=== PATIENT | female | born 1940 | race Caucasian/White ===

== ENCOUNTER 2016-07-04 10:10 | Day surgery (SDC) | payer BC, MEDICARE ==
[~2016-07-04 10:10] MED LIST: ACETAMINOPHEN 1000MG/100 ML PREMIX IV ONE
[2016-07-04] MEDS ORDERED: PROPOFOL 10 MG/ML VIAL IV ONE (14:00)
[2016-07-04] MEDS ORDERED: LIDOCAINE 2% MDV (20MG/ML) 20ML VIAL IV ONE (14:00)
[2016-07-04] MEDS ORDERED: SEVOFLURANE 250 ML INH ONE (14:00)
[2016-07-04] MEDS ORDERED: KETOROLAC 30 MG/ML VIAL IVP ONE (14:00)
[2016-07-04] MEDS ORDERED: ACETAMINOPHEN W/ CODEINE 300MG/60MG TABLET PO ONE (14:20)
--- NOTE | 2016-07-06 13:30 | Operative Note ---
DATE OF SURGERY: 07/04/2016. Surgeon: Pelon Harrison DO. REFERRING PHYSICIAN: Tyson Marshall DO. PREOPERATIVE DIAGNOSIS: Carpal tunnel syndrome of the right wrist. POSTOPERATIVE DIAGNOSIS: Carpal tunnel syndrome of the right wrist. OPERATION: Decompression, right median nerve, at the wrist using 3.5 loupe magnification. PROCEDURE: This 75-year-old female was taken to the operating room and placed in the supine position on the operating table. General anesthesia was induced. Right upper extremity was elevated. It was prepped with Hibiclens and draped in the usual sterile fashion. It was exsanguinated and the tourniquet inflated to 250 mmHg. A palmar incision was utilized following the hypothenar crease from the level of the base of the webspace of thumb to the flexor crease at the wrist. Dissection was carried down through the skin and subcutaneous tissue. Hemostasis obtained with electrocautery. Palmar fascia was divided in line with the skin incision to expose the flexor retinaculum, which was punctured, split to its proximal margin. Then with the contents of the carpal tunnel under direct vision, the transverse carpal ligament was transected along its ulnar border, and the radial flap was raised to expose the entire median nerve under the transverse carpal ligament. The recurrent motor branch of the median nerve was identified. The fascicles of the nerve are somewhat tortuous, but otherwise appeared to be normal. The nerve demonstrated mild atrophy. The wound was irrigated. Tourniquet was released. Hemostasis obtained with the electrocautery and the wound closed with interrupted 6-0 nylon sutures. Sterile dressings were applied with plaster splint immobilization with the wrist in slight dorsiflexion and the thumb in an adducted position. GROSS PATHOLOGY: This patient demonstrated mild tortuosity of the recurrent motor branch of the median nerve, but the nerve itself otherwise appeared normal. The main body of the median nerve under the transverse carpal ligament demonstrated mild atrophy. [facility]
== END 2016-07-04 13:58 | disposition home or self-care (01) ==
LOC: SUR 10:10
PROVIDERS: ATTEND Orthopaedic Surgery
DX: G56.01 Carpal tunnel syndrome, right upper limb (principal); E78.00 Pure hypercholesterolemia, unspecified; I10 Essential (primary) hypertension
CPT/HCPCS: 64721; 01810; J1885

== ENCOUNTER 2017-04-02 07:24 | Emergency (ER) | payer MEDICARE ==
[2017-04-02] MEDS ORDERED: MORPHINE SULFATE 5 MG/ML PFS IM ONE (07:53)
[2017-04-02] MEDS ORDERED: PROMETHAZINE HCL 25 MG/ML VIAL IM ONE (07:54)
--- NOTE | 2017-04-02 08:15 | Emergency Department Record ---
History of Present Illness - General Chief complaint: Pain Stated complaint: HIP PAIN Time Seen by Provider: 04/02/17 07:26 Source: Patient Mode of Arrival: Ambulatory Limitations: No limitations - History of Present Illness Initial comments: pt c/o l hip pain that radiates down l leg. no numbness. no problems w bowel or bladder. pt does not recall any injury. she has never had this before MD Complaint: Extremity pain, Other Onset/Timin -: Days(s) Location: Left, Thigh History of Same: No Severity scale (1-10): 8 Consistency: Constant Improves with: Movement Worsens with: Rest Associated Symptoms: Denies other symptoms - Related Data Home Medications Medication Instructions Recorded Confirmed Last Taken Ascorbic Acid [Vitamin C] 1,000 mg PO DAILY 04/02/17 04/02/17 04/01/17 Losartan/Hydrochlorothiazide 1 each PO DAILY 04/02/17 04/02/17 04/01/17 [Losartan-Hctz 50-12.5 mg Tab] Allergies Allergy/AdvReac Type Severity Reaction Status Date / Time Sulfa (Sulfonamide Allergy Intermediate HIVES Verified 04/02/17 07:41 Antibiotics) tramadol HCl [From Ultram] AdvReac Intermediate RAPID Verified 04/02/17 07:41 HEART RATE hydrocodone [From [place]] AdvReac NAUSEA AND Verified 04/02/17 07:41 VOMITING Travel Screening - Travel/Exposure Within Last 30 Days Have you traveled within the last 30 days?: No - Travel/Exposure Within Last Year Have you traveled outside the [place] in the last year?: No - Additonal Travel Details Have you been exposed to anyone with a communicable illness?: No - Travel Symptoms Symptom Screening: None Review of Systems Reviewed: No additional complaints except as noted below Constitutional: Reports: As per HPI. Denies: Chills, Fever, Malaise, Night sweats, Weakness, Weight change Eyes: Reports: As per HPI. Denies: Eye discharge, Eye pain, Photophobia, Vision change ENT: Reports: As per HPI. Denies: Congestion, Dental pain, Ear pain, Epistaxis , Hearing loss, Throat pain Respiratory: Reports: As per HPI. Denies: Cough, Dyspnea, Hemoptysis, Stridor, Wheezes Cardiovascular: Reports: As per HPI. Denies: Arrhythmia, Chest pain, Dyspnea on exertion, Edema, Murmurs, Orthopnea, Palpitations, Paroxysmal nocturnal dyspnea, Rheumatic Fever, Syncope Endocrine: Reports: As per HPI. Denies: Fatigue, Heat or cold intolerance, Polydipsia, Polyuria Gastrointestinal: Reports: As per HPI. Denies: Abdominal pain, Constipation, Diarrhea, Hematemesis, Hematochezia, Melena, Nausea, Vomiting Genitourinary: Reports: As per HPI. Denies: Abnormal menses, Discharge, Dyspareunia, Dysuria, Frequency, Hematuria, Incontinence, Retention, Urgency Musculoskeletal: Reports: As per HPI, Back pain. Denies: Arthralgia, Gout, Joint swelling, Myalgia, Neck pain Skin: Reports: As per HPI. Denies: Bruising, Change in color, Change in hair/ nails, Lesions, Pruritus, Rash Neurological: Reports: As per HPI. Denies: Abnormal gait, Confusion, Headache, Numbness, Paresthesias, Seizure, Tingling, Tremors, Vertigo, Weakness Psychiatric: Reports: As per HPI. Denies: Anxiety, Auditory hallucinations, Depression, Homicidal thoughts, Suicidal thoughts, Visual hallucinations Hematological/Lymphatic: Reports: As per HPI. Denies: Anemia, Blood Clots, Easy bleeding, Easy bruising, Swollen glands Past Medical History - SOCIAL HISTORY Smoking Status: Never smoker Alcohol Use: None Drug Use: None - RESPIRATORY Hx Respiratory Disorders: Yes Hx Sleep Apnea: Yes Hx of CPAP: Yes - CARDIOVASCULAR Hx Cardio Disorders: Yes Hx Edema: Yes (hands and left ankle) Hx Hypertension: Yes (good control with med) Hx Palpitations: No (denies) - NEURO Hx Neuro Disorders: Yes Hx Dizziness: Yes (vertigo) Hx Headaches: Yes ("most the time") Comment:: vertigo - GI Hx GI Disorders: No Hx Reflux: (denies) Hx Nausea/Vomiting: (denies) - Hx Genitourinary Disorders: Yes Hx Bladder Problem: Yes (frequency) Comment:: frequency - ENDOCRINE Hx Endocrine Disorders: Yes Comment:: Hx hypoglycemia - MUSCULOSKELETAL Hx Musculoskeletal Disorders: Yes Hx Arthritis: Yes (hands) Hx Back Injury: Yes (got dizzy & fell backwards-16 yrs ago) Hx Osteoporosis: Yes Comment:: right wrist carpal tunnel syndrome - PSYCH Hx Psych Problems: No - HEMATOLOGY/ONCOLOGY Hx Hematology/Oncology Disorders: Yes Hx Cancer: Yes (skin lesion from lt wrist) Family Medical History Any Significant Family History?: No Hx Anxiety: Brother/Sister *Anxiety Comment: brother bipolar Hx Cancer: Brother/Sister *Cancer Comment: sister Hx Dementia: Mother Hx Diabetes: Brother/Sister *Diabetes Comment: sister Hx Heart Disease: Father, Mother, Brother/Sister Hx HTN: Brother/Sister, Grandparents *HTN Comment: sister Hx Seizures: Brother/Sister *Seizure Comment: 1/2 sister Hx Stroke: Mother Physical Exam - General General Appearance: Alert, Oriented x3, Cooperative, Mild distress - Head Head exam: Normal inspection - Eye Eye exam: Normal appearance, PERRL, EOMI Pupils: Normal accommodation - ENT ENT exam: Normal exam, Mucous membranes moist, Normal external ear exam, Normal orophraynx, TM's normal bilaterally Ear exam: Normal external inspection. negative: External canal tenderness Nasal Exam: Normal inspection. negative: Discharge, Sinus tenderness Mouth exam: Normal external inspection, Tongue normal Teeth exam: Normal inspection. negative: Dental caries Throat exam: Normal inspection. negative: Tonsillar erythema, Tonsillar exudate - Neck Neck exam: Normal inspection, Full ROM. negative: Tenderness - Respiratory Respiratory exam: Normal lung sounds bilaterally. negative: Respiratory distress - Cardiovascular Cardiovascular Exam: Regular rate, Normal rhythm, Normal heart sounds - GI/Abdominal GI/Abdominal exam: Soft, Normal bowel sounds. negative: Tenderness - Rectal Rectal exam: Deferred - exam: Deferred - Extremities Extremities exam: Normal inspection, Full ROM, Normal capillary refill, Tenderness - Back Back exam: Reports: Normal inspection, Full ROM, Muscle spasm, Tenderness. Denies: Rash noted - Neurological Neurological exam: Alert, Normal gait, Oriented X3, Reflexes normal - Psychiatric Psychiatric exam: Normal affect, Normal mood - Skin Skin exam: Dry, Intact, Normal color, Warm Course Vital Signs 04/02/17 07:26 Temperature 97.4 F L Pulse Rate 67 Respiratory 16 Rate Blood Pressure 179/92 Pulse Ox 97 Disposition Disposition: Discharge Clinical Impression: Radiculopathy Qualifiers: Spinal region: lumbar Qualified Code(s): M54.16 - Radiculopathy, lumbar region Disposition: Home, Self-Care Condition: (1) Good Instructions: Lumbar Disc Herniation (ED) Additional Instructions: follow up with dr clay this week. return sooner if worse. no lifting more then 5 pounds Forms: Patient Portal Access Quality - Quality Measures Quality Measures: N/A - Blood Pressure Screening Does Patient Have Any of the Following: No Blood Pressure Classification: Hypertensive Reading Systolic Measurement: 179 Diastolic Measurement: 92 Screening for High Blood Pressure: < First Hypertensive BP, F/U Documented > [ G8950] First Hypertensive Follow-up Interventions: Follow-up with rescreen GT 1 day and LT 4 weeks.
--- NOTE | 2017-04-02 14:27 | RADIOLOGY REPORT ---
EXAM: LEFT HIP HISTORY: LOWER BACK AND LEFT POSTERIOR HIP PAIN BEGINNING SIX DAYS AGO. NO KNOWN INJURY. TECHNIQUE: An AP view of the pelvis was obtained as well as AP and frog leg lateral views of the left hip. Comparison: CT of the abdomen and pelvis with contrast dated 11/29/05. Encounter: Initial. FINDINGS: There is normal bone mineralization. No fracture, dislocation, or destructive bone lesion is seen. Total right hip arthroplasty changes are identified. The metallic prosthetic components appear well seated. There are mild to moderate degenerative changes of the left hip. Enthesopathic spurring is noted along the anterior margin of the greater trochanters of each femur. There are mild degenerative changes of the lower lumbar spine. The sacroiliac joints are unremarkable. Vascular calcifications are noted within the inferior pelvis. IMPRESSION: 1. NO ACUTE OSSEOUS ABNORMALITY. NO LYTIC OR BLASTIC BONE LESION. 2. STATUS POST TOTAL RIGHT HIP ARTHROPLASTY CHANGES. 3. MILD TO MODERATE DEGENERATIVE CHANGES OF THE LEFT HIP. JOB NUMBER: [id number] [facility]TDD
--- NOTE | 2017-04-03 07:31 | RADIOLOGY REPORT ---
EXAM: LUMBAR SPINE, AP AND LATERAL VIEWS HISTORY: LOWER BACK PAIN BEGINNING SIX DAYS AGO. NO RECENT INJURY. TECHNIQUE: AP and lateral views of the lumbar spine were obtained. Comparison: Same day radiographic examination of the left hip. FINDINGS: There is mild diffuse osteopenia. There are five non-rib bearing lumbar type vertebra. The vertebral bodies are grossly normal in alignment and height. No acute fracture is seen. No lytic or blastic bone lesion. Multilevel degenerative disk/degenerative end plate changes are scattered throughout the lumbar spine primarily mild in degree though the degenerative disk/end plate changes of the L5-S1 level are moderate. Mild bilateral facet arthropathy is identified most pronounced at the lower lumbar levels. Mild to moderate degenerative changes of the left hip. Total right hip arthroplasty changes present without definite complication. There is diffuse atherosclerosis of the abdominal aorta with questionable mild focal ectasia at the L3 level measuring 2.6 cm in diameter. IMPRESSION: 1. NO ACUTE OSSEOUS OR LIGAMENTOUS ABNORMALITY. 2. MULTILEVEL DEGENERATIVE CHANGES, DETAILED ABOVE. 3. DIFFUSE ATHEROSCLEROSIS. MILD FOCAL ECTASIA OF THE ABDOMINAL AORTA MEASURING 2.6 CM IN MAXIMUM DIAMETER. JOB NUMBER: [id number] [facility]
== END 2017-04-02 09:46 | disposition home or self-care (01) ==
LOC: ER 07:24
DX: M51.16 Intervertebral disc disorders with radiculopathy, lumbar region (principal); M25.552 Pain in left hip; I10 Essential (primary) hypertension
CPT/HCPCS: 99283; 96372; 99284; 72100; 73502; J2270; J2550

== ENCOUNTER 2017-08-02 10:37 | Emergency (ER) | payer MEDICARE ==
--- NOTE | 2017-08-02 10:49 | Emergency Department Record ---
History of Present Illness - General Chief Complaint: Fall Injury Stated Complaint: HEADACHE/FELL SATURDAY Time Seen by Provider: 08/02/17 10:43 Source: Patient Mode of Arrival: Ambulatory Limitations: No limitations - History of Present Illness Initial Comments: 76 yo female presents after a fall on Saturday. She was taking a window out in her kitchen to wash it. She fell backward hitting the back of her head on a ladder and then the floor. No LOC. No vomiting. Since then she has had intermittent dizziness, headaches, and occasional nausea. She is not on blood thinners. No memory loss. She has right mid cabral bruising and pain as well. No vision changes, coordination changes, or confusion. She went to the [facility] this morning and was referred to the ED. MD Complaint: Fall -: Days(s) (4) Fall From: Standing When Fall Occurred: # Days MOSAICIST (4) Fall Witnessed: No Place Fall Occurred: Home Loss of Consciousness: None Prolonged Down Time?: No Symptoms Prior to Fall: None Location - Extremities: Right: Lower Leg Severity: Moderate Quality: Aching Context: Tripped/slipped Associated Symptoms: Headache, Vertigo - Debra Coma Scale Eye Response: (4) Open spontaneously Motor Response: (6) Obeys commands Verbal Response: (5) Oriented [place] Total: 15 - Related Data Home Medications Medication Instructions Recorded Confirmed Last Taken Acetaminophen [Tylenol Arthritis] 1,300 mg PO ASDIR 08/02/17 08/02/17 08/02/17 Allergies Allergy/AdvReac Type Severity Reaction Status Date / Time Sulfa (Sulfonamide Allergy Intermediate HIVES Verified 08/02/17 10:45 Antibiotics) tramadol HCl [From Ultram] AdvReac Intermediate RAPID Verified 08/02/17 10:45 HEART RATE hydrocodone [From [place]] AdvReac NAUSEA AND Verified 08/02/17 10:45 VOMITING Review of Systems Constitutional: Denies: Chills, Fever, Malaise, Weakness Eyes: Denies: Eye discharge, Eye pain, Photophobia, Vision change ENT: Denies: Congestion, Ear pain, Throat pain Respiratory: Denies: Cough, Dyspnea Cardiovascular: Denies: Chest pain, Syncope Endocrine: Denies: Fatigue Gastrointestinal: Reports: Nausea. Denies: Abdominal pain, Diarrhea, Vomiting Genitourinary: Denies: Dysuria, Urgency Musculoskeletal: Reports: As per HPI, Arthralgia, Myalgia. Denies: Back pain, Joint swelling Skin: Denies: Bruising, Change in color, Rash Neurological: Reports: Headache, Tingling, Vertigo. Denies: Abnormal gait, Confusion, Numbness, Paresthesias, Seizure, Tremors, Weakness Psychiatric: Denies: Anxiety Hematological/Lymphatic: Denies: Easy bleeding, Easy bruising Past Medical History - SOCIAL HISTORY Smoking Status: Never smoker Drug Use: None - RESPIRATORY Hx Respiratory Disorders: Yes Hx Sleep Apnea: Yes Hx of CPAP: Yes - CARDIOVASCULAR Hx Cardio Disorders: Yes Hx Edema: Yes (hands and left ankle) Hx Hypertension: Yes (good control with med) Hx Palpitations: No (denies) - NEURO Hx Neuro Disorders: Yes Hx Dizziness: Yes (vertigo) Hx Headaches: Yes ("most the time") Comment:: vertigo - GI Hx GI Disorders: No Hx Reflux: (denies) Hx Nausea/Vomiting: (denies) - Hx Genitourinary Disorders: Yes Hx Bladder Problem: Yes (frequency) Comment:: frequency - ENDOCRINE Hx Endocrine Disorders: Yes Comment:: Hx hypoglycemia - MUSCULOSKELETAL Hx Musculoskeletal Disorders: Yes Hx Arthritis: Yes (hands) Hx Back Injury: Yes (got dizzy & fell backwards-16 yrs ago) Hx Osteoporosis: Yes Comment:: right wrist carpal tunnel syndrome - PSYCH Hx Psych Problems: No - HEMATOLOGY/ONCOLOGY Hx Hematology/Oncology Disorders: Yes Hx Cancer: Yes (skin lesion from lt wrist) Family Medical History Hx Anxiety: Brother/Sister *Anxiety Comment: brother bipolar Hx Cancer: Brother/Sister *Cancer Comment: sister Hx Dementia: Mother Hx Diabetes: Brother/Sister *Diabetes Comment: sister Hx Heart Disease: Father, Mother, Brother/Sister Hx HTN: Brother/Sister, Grandparents *HTN Comment: sister Hx Seizures: Brother/Sister *Seizure Comment: 1/2 sister Hx Stroke: Mother Physical Exam - General General Appearance: Alert, Oriented x3, Cooperative, No acute distress Limitations: No limitations - Head Head exam: negative: Atraumatic, Normal inspection Head exam detail: Contusion Image of Face/Head: 1 - small, faint contusion, no lacerations - Eye Eye exam: Normal appearance, PERRL. negative: Conjunctival injection, Scleral icterus - ENT ENT exam: Normal exam, Mucous membranes moist, Normal orophraynx Ear exam: Normal external inspection Nasal Exam: Normal inspection Mouth exam: Normal external inspection Teeth exam: Normal inspection Throat exam: Normal inspection - Neck Neck exam: Normal inspection, Full ROM. negative: Tenderness - Respiratory Respiratory exam: Normal lung sounds bilaterally. negative: Respiratory distress, Rhonchi, Stridor, Wheezes - Cardiovascular Cardiovascular Exam: Regular rate, Normal rhythm, Normal heart sounds Peripheral Pulses: 2+: Radial (R), Radial (L) - GI/Abdominal GI/Abdominal exam: Soft. negative: Tenderness - Rectal Rectal exam: Deferred - exam: Deferred - Extremities Extremities exam: Full ROM, Normal capillary refill, Tenderness. negative: Normal inspection, Calf tenderness, Pedal edema Image of Full Body: 1 - slight bruising with local tenderness - Back Back exam: Reports: Normal inspection, Full ROM. Denies: CVA tenderness (R), CVA tenderness (L), Muscle spasm, Paraspinal tenderness, Rash noted, Tenderness , Vertebral tenderness - Neurological Neurological exam: Alert, Oriented X3 - Psychiatric Psychiatric exam: Normal affect, Normal mood - Skin Skin exam: Dry, Intact, Normal color, Warm Course - Reevaluation(s) Reevaluation #1: The patient appears well, Given her age and recurrent symptoms HCT ordered. 08/02/17 10:50 08/02/17 11:32 The HCT,Cervical Spine CT, and lower extremity XR were reviewed. No acute injuries noted We discussed concussion symptoms and home care as well as reasons to return to the ED. She is to call her PCP for close follow up and a recheck Disposition Disposition: Discharge Clinical Impression: Head contusion, Contusion of leg, right, Concussion Disposition: Home, Self-Care Condition: (1) Good Instructions: Concussion (ED) Additional Instructions: Rest and avoid over activity Call your doctor for a recheck Return or be seen if worse, any new symptoms or concerns Forms: Patient Portal Access Time of Disposition: 11:34 Quality - Quality Measures Quality Measures: N/A, Blunt Head Trauma (>2yr) - Blunt Head Trauma - Adult Quality Measure: Measure #415: Utilization of CT for Minor Blunt Head Trauma ICD10 Codes Entered: Yes Was CT ordered: Yes Does Patient Have Any of the Following: No Exclusions Patient Presented Within 24 Hours of Injury: No Debra Score: Please complete Debra Coma Scale above Utilization of CT for Minor Blunt Head Trauma: Not Eligible For Measure Additional Inclusion Criteria: More than 24hrs (OR) GCS not 15 (OR) CT not ordered. Not Eligible Reason: Injury Greater Than 24 Hours Ago - Blood Pressure Screening Does Patient Have Any of the Following: Active Dx of HTN Blood Pressure Classification: Hypertensive Reading Systolic Measurement: 147 Diastolic Measurement: 72 Screening for High Blood Pressure: Patient Exclusion, Hx of HTN [G9744]
--- NOTE | 2017-08-03 15:28 | CT SCAN REPORT ---
DATE: 08/02/2017. EXAM: CT OF THE CERVICAL SPINE. HISTORY: Neck pain. TECHNIQUE: Axial CT images of the cervical spine with coronal and sagittal reconstruction views. COMPARISON: None. FINDINGS: Evaluation of spinal canal contents is limited due to CT technique. However, vertebral body height and alignment is preserved. Multilevel degenerative change, greatest at the C5-6 level. Limited evaluation of extraspinal anatomic structures is unremarkable. IMPRESSION: NEGATIVE FOR ACUTE CERVICAL SPINE ABNORMALITIES. MULTILEVEL DEGENERATIVE CHANGE. JOB [facility]BER: [id number] [facility]
--- NOTE | 2017-08-03 15:32 | CT SCAN REPORT ---
DATE: 08/02/2017. EXAM: CT OF THE BRAIN. HISTORY: Headache. TECHNIQUE: CT of the brain without contrast. COMPARISON: 01/09/2012 CT of the brain. FINDINGS: The globes are intact. The paranasal sinuses and mastoid air cells are unremarkable. No displaced or depressed skull fracture. No intra- or extra -axial hemorrhage. CT is limited for the evaluation of acute infarct. There is no CT evidence for large or territorial acute infarct. Mild, diffuse atrophy with minor small-vessel ischemic change. No mass or midline shift. IMPRESSION: MILD ATROPHY AND SMALL-VESSEL ISCHEMIC CHANGE. JOB NUMBER: [id number] [facility]
--- NOTE | 2017-08-03 15:34 | RADIOLOGY REPORT ---
DATE: 08/02/2017. EXAM: RIGHT LEG. HISTORY: Injury. TECHNIQUE: Two views of the right leg. COMPARISON: None. ENCOUNTER: Initial. FINDINGS: Osteopenia. Negative for acute fracture or dislocation. Degenerative changes of the knee and ankle. The soft tissues are unremarkable. IMPRESSION: DEGENERATIVE CHANGE. OSTEOPENIA. JOB NUMBER: [id number] [facility]D
== END 2017-08-02 11:43 | disposition home or self-care (01) ==
LOC: ER 10:37
DX: S00.83XA Contusion of other part of head, initial encounter (principal); S80.11XA Contusion of right lower leg, initial encounter; I10 Essential (primary) hypertension; W18.39XA Other fall on same level, initial encounter; Y92.010 Kitchen of single-family (private) house as the place of occurrence of the external cause
CPT/HCPCS: 70450; 72125; 99284

== ENCOUNTER 2018-03-13 21:11 | Emergency (ER) | payer MEDICARE ==
--- NOTE | 2018-03-13 22:24 | Emergency Department Record ---
History of Present Illness - General Chief Complaint: Fall Injury Stated Complaint: FALL INJURY/RT SHOULDER AND HIP Time Seen by Provider: 03/13/18 21:46 Source: Patient Mode of Arrival: Ambulatory Limitations: No limitations - History of Present Illness Initial Comments: pt fell down 13 steps into the basement several hours ago. she has pain in her r shoulder and contusions on her r leg Onset/Timin -: Hour(s) Fall From: Down stairs (#), Standing When Fall Occurred: 4-6 hours [employer] Fall Witnessed: No Place Fall Occurred: Home Loss of Consciousness: None Severity: Moderate Severity scale (1-10): 4 Quality: Aching Context: Tripped/slipped Associated Symptoms: Denies - Debra Coma Scale Eye Response: (4) Open spontaneously Motor Response: (6) Obeys commands Verbal Response: (5) Oriented [place] Total: 15 - Related Data Allergies Allergy/AdvReac Type Severity Reaction Status Date / Time Sulfa (Sulfonamide Allergy Intermediate HIVES Verified 03/13/18 21:22 Antibiotics) tramadol HCl [From Ultram] AdvReac Intermediate RAPID Verified 03/13/18 21:22 HEART RATE hydrocodone [From [place]] AdvReac NAUSEA AND Verified 03/13/18 21:22 VOMITING Travel Screening - Travel/Exposure Within Last 30 Days Have you traveled within the last 30 days?: No - Travel Symptoms Symptom Screening: None Past Medical History - SOCIAL HISTORY Smoking Status: Never smoker Alcohol Use: None Drug Use: None - RESPIRATORY Hx Respiratory Disorders: Yes Hx Sleep Apnea: Yes Hx of CPAP: Yes - CARDIOVASCULAR Hx Cardio Disorders: Yes Hx Edema: Yes (hands and left ankle) Hx Hypertension: Yes (good control with med) Hx Palpitations: No (denies) - NEURO Hx Neuro Disorders: Yes Hx Dizziness: Yes (vertigo) Hx Headaches: Yes ("most the time") Comment:: vertigo - GI Hx GI Disorders: No Hx Reflux: (denies) Hx Nausea/Vomiting: (denies) - Hx Genitourinary Disorders: Yes Hx Bladder Problem: Yes (frequency) Comment:: frequency - ENDOCRINE Hx Endocrine Disorders: Yes Comment:: Hx hypoglycemia - MUSCULOSKELETAL Hx Musculoskeletal Disorders: Yes Hx Arthritis: Yes (hands) Hx Back Injury: Yes (got dizzy & fell backwards-16 yrs ago) Hx Osteoporosis: Yes Comment:: right wrist carpal tunnel syndrome - PSYCH Hx Psych Problems: No - HEMATOLOGY/ONCOLOGY Hx Hematology/Oncology Disorders: Yes Hx Cancer: Yes (skin lesion from lt wrist) Family Medical History Any Significant Family History?: Yes Hx Anxiety: Brother/Sister *Anxiety Comment: brother bipolar Hx Cancer: Brother/Sister *Cancer Comment: sister Hx Dementia: Mother Hx Diabetes: Brother/Sister *Diabetes Comment: sister Hx Heart Disease: Father, Mother, Brother/Sister Hx HTN: Brother/Sister, Grandparents *HTN Comment: sister Hx Seizures: Brother/Sister *Seizure Comment: 1/2 sister Hx Stroke: Mother Course Vital Signs 03/13/18 21:15 Temperature 98.7 F Pulse Rate 70 Respiratory 20 Rate Blood Pressure 166/83 Pulse Ox 96 - Reevaluation(s) Reevaluation #1: 03/13/18 22:55 xray neg Disposition Disposition: Discharge Clinical Impression: Rotator cuff (capsule) sprain Qualifiers: Encounter type: initial encounter Laterality: right Qualified Code(s): S43.421A - Sprain of right rotator cuff capsule, initial encounter Disposition: Home, Self-Care Condition: (1) Good Instructions: Fall Prevention for Older Adults (ED), Rotator Cuff Injury (ED), Shoulder Sprain (ED) Additional Instructions: follow up with family doctor. return sooner if worse. ice to shoulder. wear sling for 3 days only and do range of motion exercises Forms: Patient Portal Access Quality - Quality Measures Quality Measures: N/A - Blood Pressure Screening Does Patient Have Any of the Following: No Blood Pressure Classification: Pre-Hypertensive BP Reading Systolic Measurement: 166 Diastolic Measurement: 83 Screening for High Blood Pressure: < Pre-Hypertensive BP, F/U Documented > [ [id number]] Pre-Hypertensive Follow-up Interventions: Follow-up with rescreen every year.
--- NOTE | 2018-03-15 22:50 | RADIOLOGY REPORT ---
EXAM: SHOULDER, RIGHT HISTORY: FALL ONTO SHOULDER, PAIN. TECHNIQUE: Right shoulder radiographs. COMPARISON: None. FINDINGS: No definite acute fracture is appreciated. No dislocation. Glenohumeral and acromioclavicular joint degenerative findings. IMPRESSION: 1. NO DEFINITE ACUTE OSSEOUS FINDINGS. 2. DEGENERATIVE CHANGES OF THE GLENOHUMERAL AND ACROMIOCLAVICULAR JOINTS. 3. IF THERE IS CLINICAL CONCERN FOR AN OCCULT FRACTURE, CONSIDER FOLLOW-UP WITH CROSS-SECTIONAL IMAGING. JOB NUMBER: [id number] [facility]
== END 2018-03-13 23:12 | disposition home or self-care (01) ==
LOC: ER 21:11
DX: S43.421A Sprain of right rotator cuff capsule, initial encounter (principal); W10.8XXA Fall (on) (from) other stairs and steps, initial encounter; Y92.009 Unspecified place in unspecified non-institutional (private) residence as the place of occurrence of the external cause; I10 Essential (primary) hypertension
CPT/HCPCS: 99283

== ENCOUNTER 2018-09-23 07:52 | Day surgery (SDC) | payer MEDICARE ==
[~2018-09-23 07:52] MED LIST changes: -ACETAMINOPHEN 1000MG/100 ML PREMIX IV ONE; +CEFAZOLIN 2 Gram 2 GM/50 ML BAG IVPB ONE
[2018-09-23] MEDS ORDERED: LIDOCAINE 2% MDV (20MG/ML) 20ML VIAL IV ONE (07:53)
[2018-09-23] MEDS ORDERED: SEVOFLURANE 250 ML INH ONE (07:53)
[2018-09-23] MEDS ORDERED: DEXAMETHASONE 4 MG/ML 1ML VIAL IVP ONE (07:53)
[2018-09-23] MEDS ORDERED: PROPOFOL 10 MG/ML VIAL IV ONE (07:53)
[2018-09-23] MEDS ORDERED: FENTANYL PF 100MCG/2ML VIAL IV ONE (07:53)
[2018-09-23] MEDS ORDERED: EPHEDRINE SULFATE 50 MG/ML ML IV ONE (07:53)
[2018-09-23] MEDS ORDERED: BUPIVACAINE LIPOSOME 266MG/20ML VIAL IV ONE (07:53)
[2018-09-23] MEDS ORDERED: ONDANSETRON HCL IV 4 MG/2 ML VIAL IVP ONE (07:53)
[2018-09-23] MEDS ORDERED: MIDAZOLAM HCL 2MG/2ML VIAL IV ONE (07:53)
[2018-09-23] MEDS ORDERED: BUPIVACAINE 0.25% MPF 30ML VIAL IVP ONE (07:53)
[2018-09-23] MEDS ORDERED: RINGERS SOLUTION,LACTATED 1,000 ML IV ONE ×2 (09:15→11:30)
--- NOTE | 2018-09-26 13:31 | Operative Note ---
DATE OF SURGERY: 09/23/2018 SURGEON: Pelon Harrison DO PREOPERATIVE DIAGNOSES: 1. Tear of the right rotator cuff. 2. Impingement syndrome, right shoulder. POSTOPERATIVE DIAGNOSES: 1. Tear of the right rotator cuff. 2. Impingement syndrome, right shoulder. 3. Tear of the glenoid labrum, right shoulder. 4. Tear of the biceps tendon, right shoulder. 5. Osteoarthritis of the glenoid, right shoulder. OPERATION: 1. Arthroscopic repair of the right rotator cuff. 2. Arthroscopic subacromial decompression and acromioplasty of the right shoulder. 3. Arthroscopic debridement of the anterior and superior glenoid labrum. 4. Arthroscopic biceps tenotomy of the right shoulder. DESCRIPTION OF PROCEDURE: This 78-year-old female was taken to the operating room and placed in the supine position on the operating room table. General anesthetic was administered. The patient was placed in the beach chair position with all bony prominences well padded and head well secured. The right shoulder was prepped with Hibiclens and draped in the usual sterile fashion. A posterior portal was established in the glenohumeral joint and initial evaluation of the joint demonstrated marked fraying of the superior and anterior glenoid labrum with marked fraying of the undersurface of the supraspinatus tendon. This was debrided through an anterior portal to healthy appearing tissue. The biceps tendon also demonstrated marked degeneration and tearing near its entrance into the bicipital groove. This was then incised and released. Subscapularis appeared to be normal. The articular cartilage of the humeral head also appeared to be normal. Glenohumeral ligaments also appeared to be normal. The scope was then placed in the subacromial space, and thorough subacromial decompression and acromioplasty were performed. The tuberosity was debrided to healthy appearing tissue. There was a significant amount of calcification within the supraspinatus tendon, and we debrided as much of this as we could possibly remove. This left us with a healthy bony surface and what was felt to be reasonable rotator cuff. We then felt that this U-shaped tear could be repaired by using Speedbridge technique. Therefore, two 4.75 SwiveLock anchors were placed adjacent to the articular cartilage; one at the anterior and one at the posterior margin of the tear. The FiberTape and TigerTape were passed through these sutures, respectively. Then a single limb of each suture was then passed through a 3rd SwiveLock anchor which was 5.5 mm, and this was placed inferior to the anterior anchor. Traction placed on the sutures to bring the cuff down to the previously prepared bed, and the anchor was impaled. Subsequently, the 2 remaining tails of suture were placed through a 4th SwiveLock which was 5.5 mm, and this was placed inferior to the posterior anchor. This pulled the cuff down nicely to the tuberosity. The wound was then irrigated and sutures were cut and the instruments were removed. The portals were closed with 4-0 nylon suture. Sterile dressings with an UltraSling were applied. The patient was taken to the recovery room in satisfactory condition. 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 This represented approximately 50% of the glenoid surface and most of it was anterior and inferior. There was marked fraying of the biceps tendon and we initially debrided it but then found that it was so thin that it certainly would have ruptured, and it was therefore released. We subsequently debrided the glenoid labrum mostly superiorly and anteriorly. There is not bony detachment but marked fraying was identified. The joint was otherwise essentially unremarkable. [facility]
== END 2018-09-23 12:47 | disposition home or self-care (01) ==
LOC: SUR 07:52
PROVIDERS: ATTEND Orthopaedic Surgery
DX: M75.101 Unspecified rotator cuff tear or rupture of right shoulder, not specified as traumatic (principal); S43.431A Superior glenoid labrum lesion of right shoulder, initial encounter; S46.211A Strain of muscle, fascia and tendon of other parts of biceps, right arm, initial encounter; M19.011 Primary osteoarthritis, right shoulder; I10 Essential (primary) hypertension; E78.00 Pure hypercholesterolemia, unspecified; G47.33 Obstructive sleep apnea (adult) (pediatric)
CPT/HCPCS: 76942; J2405; J7120